=== PATIENT | female | born 1985 | race Two or more races ===

== ENCOUNTER 2020-09-21 09:02 | Emergency (ER) | payer OTHER ==
[~2020-09-21] VITALS: Ht 152.4 cm; Wt 59.0 kg
[~2020-09-21 09:02] MED LIST: DEPAKOTE ER250 MG PO; IMITREX50 MG PO; NAPROXEN SODIU550 MG PO; NORFLEX100MG PO; PAMELOR10 MG; PAMELOR25 MG
[2020-09-21] MEDS ORDERED: BETAMETHASONE V15 GM TOP (13:30)
== END 2020-09-21 13:52 | disposition home or self-care (01) ==
LOC: ER 09:02
DX: R21 Rash and other nonspecific skin eruption (principal)

== ENCOUNTER 2024-08-14 08:54 | Emergency (ER) | payer OTHER ==
[~2024-08-14] VITALS: Ht 152.4 cm; Wt 55.3 kg
[~2024-08-14 08:54] MED LIST changes: +BETAMETHASONE V15 GM TOP
[2024-08-14 09:19] VITALS: BP 111/57; O2SAT 100
[2024-08-14 10:29] LABS: BASO % 0.6 % (0.1-1.2); EOS # 0.09 (0.04-0.54); EOS % 1.2 % (0.7-7.0); HEMATOCRIT 29.8 % (34.1-44.9); HEMOGLOBIN 9.4 g/dL (11.2-15.7); LYMPH # 1.86 (1.18-3.74); LYMPH % 25.7 % (19.3-53.1); MEAN CORPUSCULAR HEMOGLOBIN 27.7 pg (25.6-32.2); MONO # 0.41 (0.24-0.82); MONO % 5.7 % (4.7-12.5); NEUT # 4.81 (1.56-6.13); NEUT % 66.5 % (34.0-71.1); PLATELET COUNT 379 K/uL (163-369); RED BLOOD COUNT 3.39 M/uL (3.93-5.22); RED CELL DISTRIBUTION WIDTH 21.7 % (11.6-14.4)
[2024-08-14 10:52] LABS: INR 0.97; PROTHROMBIN TIME 10.6 SECONDS (9.0-11.5)
[2024-08-14 10:57] LABS: ALBUMIN 3.5 gm/dL (3.4-5.0); BILIRUBIN TOTAL 0.15 mg/dL (0.3-1.2); CALCIUM 8.9 mg/dL (8.5-10.1); CREATININE SERUM 0.51 mg/dL (0.55-1.02); GFR 133.56; GLOBULINA 3.1 G/DL (2.4-3.5); POTASSIUM 3.82 mEq/L (3.5-5.1); TOTAL PROTEIN 6.6 gm/dL (6.4-8.2)
== END 2024-08-14 13:07 | disposition home or self-care (01) ==
LOC: ER 09:03
DX: N93.8 Other specified abnormal uterine and vaginal bleeding (principal); Z88.0 Allergy status to penicillin